=== PATIENT | male | born 1980 | race Caucasian/White ===

== ENCOUNTER 2018-12-24 16:27 | Emergency (ER) | payer OTHER ==
[2018-12-24 16:57] VITALS: BP 132/80; PULSE 92; RESP 16; TEMP 98.6
[2018-12-24 18:06] LABS: Amorphous Sediment,Urine Rare /hpf; Appearance,Urine Clear (Clear); Bilirubin,Urine Negative (Negative); Blood,Urine Moderate (Negative); Color,Urine Yellow; Glucose,Urine (UA) Negative (Negative); Hyaline Casts,Urine 1 /lpf (0-2); Ketones,Urine Negative (Negative); Leukocyte Esterase,Urine Negative (Negative); Mucus,Urine Few /hpf; Nitrite,Urine Negative (Negative); PH, Urine 5.5 (5.0-8.0); Protein,Urine Negative (Negative); RBC,Urine 38 /hpf (0-5); Specific Gravity,Urine 1.008 (1.001-1.035); Squamous Epithelial Cell,Urine 1 /hpf (0-4); Urobilinogen,Urine <2.0 mg/dL (<2.0); WBC,Urine 5 /hpf (0-5)
[2018-12-24 18:25] LABS: Basophils # (A) 0.1 k/uL (0-0.2); Basophils % (A) 1 %; Eosinophils # (A) 0.3 k/uL (0-0.7); Eosinophils % (A) 4 %; HCT 35.5 % (39.0-53.0); HGB 11.5 gm/dL (13.0-17.5); Lymphocytes # (A) 2.2 k/uL (1.0-4.8); Lymphocytes % (A) 30 %; MCH 28.9 pg (25.0-35.0); MCHC 32.3 g/dL (31.0-37.0); MCV 89.5 fL (80.0-100.0); Monocytes # (A) 0.6 k/uL (0-1.0); Monocytes % (A) 8 %; Neutrophils % (A) 55 %; Platelet Count 345 k/uL (150-450); RBC 3.97 m/uL (4.30-5.90); RDW 14.2 % (11.5-15.5); WBC 7.3 k/uL (3.8-10.6)
[2018-12-24 18:35] LABS: ALT 27 U/L (21-72); AST 33 U/L (17-59); Albumin 3.5 g/dL (3.5-5.0); Alkaline Phosphatase 58 U/L (38-126); Amylase 61 U/L (30-110); Anion Gap 5 mmol/L; Blood Urea Nitrogen 9 mg/dL (9-20); Calcium 9.2 mg/dL (8.4-10.2); Carbon Dioxide 23 mmol/L (22-30); Chloride 112 mmol/L (98-107); Glucose 98 mg/dL (74-99); Lipase 123 U/L (23-300); Sodium 140 mmol/L (137-145); Total Bilirubin 0.5 mg/dL (0.2-1.3); Total Protein 6.2 g/dL (6.3-8.2)
[2018-12-24 18:48] LABS: Potassium 5.1 mmol/L (3.5-5.1)
--- NOTE | 2018-12-24 19:06 | ED ---
General Adult HPI - General Chief complaint: Abdominal Pain Stated complaint: POST OP PAIN Time Seen by Provider: 12/24/18 17:15 Source: patient, RN notes reviewed Limitations: no limitations - History of Present Illness Initial comments: 38-year-old male presents to the emergency department for suprapubic discomfort. Patient had a urethral repair 2-1/2 weeks ago. Patient states he had to have this done as he had scar tissue growing from an injury of catheter placement when he was a child. He states he has not had any complications with this. Catheter in place at this time. However today patient started having sharp suprapubic pain radiating to bilateral groins. He has not experienced this before. He denies any upper abdominal pain. He denies any fevers or chills. - Related Data Home Medications Medication Instructions Recorded Confirmed Acetaminophen Tab [Tylenol Tab] 1,000 mg PO TID PRN 12/24/18 12/24/18 Nitrofurantoin Monohyd/M-Cryst 100 mg PO Q12HR 12/24/18 12/24/18 [Macrobid] Allergies Allergy/AdvReac Type Severity Reaction Status Date / Time No Known Allergies Allergy Verified 12/24/18 17:15 Review of Systems ROS Statement: Those systems with pertinent positive or pertinent negative responses have been documented in the HPI. ROS Other: All systems not noted in ROS Statement are negative. Past Medical History Past Medical History: No Reported History History of Any Multi-Drug Resistant Organisms: None Reported Additional Past Surgical History / Comment(s): Urethra repair Past Psychological History: No Psychological Hx Reported Smoking Status: Current every day smoker Past Alcohol Use History: Occasional Past Drug Use History: None Reported General Exam Limitations: no limitations General appearance: alert, in no apparent distress Head exam: Present: atraumatic, normocephalic, normal inspection Eye exam: Present: normal appearance, PERRL, EOMI. Absent: scleral icterus, conjunctival injection, periorbital swelling ENT exam: Present: normal exam, mucous membranes moist Neck exam: Present: normal inspection, full ROM. Absent: tenderness, meningismus, lymphadenopathy Respiratory exam: Present: normal lung sounds bilaterally. Absent: respiratory distress, wheezes, rales, rhonchi, stridor Cardiovascular Exam: Present: regular rate, normal rhythm, normal heart sounds. Absent: systolic murmur, diastolic murmur, rubs, gallop, clicks GI/Abdominal exam: Present: soft, tenderness (Suprapubic tenderness without guarding. No significant right or left lower quadrant tenderness. No upper abdominal tenderness whatsoever.), normal bowel sounds. Absent: distended, guarding, rebound, rigid exam: Present: other (pabon catheter in place) Neurological exam: Present: alert, oriented X3, CN II-XII intact Psychiatric exam: Present: normal affect, normal mood Course Vital Signs 12/24/18 16:55 Temperature 98.6 F Pulse Rate 92 Respiratory 16 Rate Blood Pressure 132/80 O2 Sat by Pulse 97 Oximetry Medical Decision Making - Medical Decision Making 30-year-old male presents for lower abdominal pain over the suprapubic area. No guarding on exam. Pabon catheter in place post surgery 2.5 weeks ago. 38 ml in bladder with bladder scan. CBC CMP unremarkable. Urine does not show any evidence of infection although there is blood noted which is likely secondary to patient's surgery. CT of the abdomen and pelvis was ordered. When patient was in CAT scan his IV blew. IV placement was attempted 3 more times without success. Patient then refused IV. I did discuss with patient that not using contrast that limits the exam the patient still refuses and would rather do the CAT scan without contrast. CT did show that the urethral course appears normal. Urinary bladder contains Pabon catheter, no suspicious abnormality identified adjacent to this. It discuss diverticular changes without diverticulitis. I did discuss nonspecific nodules at the lung bases as well and patient will follow up with primary care for this. Patient will return here if he has any worsening symptoms. She will follow up with his surgeon tomorrow. He does have an appointment in 2 days. - Lab Data Result diagrams: 12/24/18 18:09 12/24/18 18:09 Lab Results 12/24/18 12/24/18 12/24/18 Range/Units 17:48 18:09 18:09 WBC 7.3 (3.8-10.6) k/uL RBC 3.97 L (4.30-5.90) m/uL Hgb 11.5 L (13.0-17.5) gm/dL Hct 35.5 L (39.0-53.0) % MCV 89.5 (80.0-100.0) fL MCH 28.9 (25.0-35.0) pg MCHC 32.3 (31.0-37.0) g/dL RDW 14.2 (11.5-15.5) % Plt Count 345 (150-450) k/uL Neutrophils % 55 % Lymphocytes % 30 % Monocytes % 8 % Eosinophils % 4 % Basophils % 1 % Neutrophils # 4.0 (1.3-7.7) k/uL Lymphocytes # 2.2 (1.0-4.8) k/uL Monocytes # 0.6 (0-1.0) k/uL Eosinophils # 0.3 (0-0.7) k/uL Basophils # 0.1 (0-0.2) k/uL Sodium 140 (137-145) mmol/L Potassium 5.1 (3.5-5.1) mmol/L Chloride 112 H (98-107) mmol/L Carbon Dioxide 23 (22-30) mmol/L Anion Gap 5 mmol/L BUN 9 (9-20) mg/dL Creatinine 0.66 (0.66-1.25) mg/dL Est GFR (CKD-EPI)AfAm >90 (>60 ml/min/1.73 sqM) Est GFR (CKD-EPI)NonAf >90 (>60 ml/min/1.73 sqM) Glucose 98 (74-99) mg/dL Calcium 9.2 (8.4-10.2) mg/dL Total Bilirubin 0.5 (0.2-1.3) mg/dL AST 33 (17-59) U/L ALT 27 (21-72) U/L Alkaline Phosphatase 58 (38-126) U/L Total Protein 6.2 L (6.3-8.2) g/dL Albumin 3.5 (3.5-5.0) g/dL Amylase 61 (30-110) U/L Lipase 123 (23-300) U/L Urine Color Yellow Urine Appearance Clear (Clear) Urine pH 5.5 (5.0-8.0) Ur Specific [place] 1.008 (1.001-1.035) Urine Protein Negative (Negative) Urine Glucose (UA) Negative (Negative) Urine Ketones Negative (Negative) Urine Blood Moderate H (Negative) Urine Nitrite Negative (Negative) Urine Bilirubin Negative (Negative) Urine Urobilinogen <2.0 (<2.0) mg/dL Ur Leukocyte Esterase Negative (Negative) Urine RBC 38 H (0-5) /hpf Urine WBC 5 (0-5) /hpf Ur Squamous Epith Cells 1 (0-4) /hpf Amorphous Sediment Rare H (None) /hpf Hyaline Casts 1 (0-2) /lpf Urine Mucus Few H (None) /hpf Disposition Clinical Impression: Pelvic pain in male Disposition: HOME SELF-CARE Condition: Good Instructions (If sedation given, give patient instructions): Pabon Catheter Placement and Care (ED), Abdominal Pain (ED) Additional Instructions: Please follow-up with your surgeon tomorrow. If symptoms worsen please return to the emergency department. Is patient prescribed a controlled substance at d/c from ED?: No Referrals: Jose Antonio Wallace MD [Primary Care Provider] - 1-2 days Time of Disposition: 20:57
--- NOTE | 2018-12-24 20:36 | CT ---
EXAMINATION TYPE: CT abdomen pelvis wo con DATE OF EXAM: 12/24/2018 COMPARISON: None INDICATION: Post op bladder pain. History of urethra repair. DLP: 757.1 mGycm, Automated exposure control for dose reduction was used. CONTRAST: 0 mL of . Study performed without Oral Contrast TECHNIQUE: Axial images were obtained from above the diaphragm to the pubic rami in the axial plane a t 5 mm thick sections. Reconstructed images are reviewed on the computer in the coronal plane. FINDINGS: Limited CT sections are obtained the lung bases. There are several nodules at the left lung base inc luding peripheral 0.9 cm nodule, series 204 image 2 couple of nodules measuring 0.6 and 0.7 cm just a milady the left diaphragm series 204 image 7. Additional smaller nodules are evident at the left base. These are nonspecific. Follow-up is recommended.. CT ABDOMEN: Liver: Normal Spleen: Normal Pancreas: Normal Adrenal glands: The adrenal glands are normal. Gallbladder: Normal Kidneys: No masses are evident. No hydronephrosis is present. No cysts are present. No renal stone s are identified. Aorta: Normal Inferior vena cava: Normal. CT PELVIS: Loops of bowel within the abdomen and pelvis are normal. Study is without oral contrast limiting bowel evaluation. A few diverticular changes are within the sigmoid colon. Appendix: Normal as visualized. Urinary bladder: Urinary bladder contains Hodgson catheter. The urinary bladder cannot be further evalu ated. Urethral course appears normal. Genitourinary structures: Prostate appears unremarkable. Osseous structures: No suspicious lytic or sclerotic lesions. IMPRESSIONS: 1. No suspicious abnormality identified adjacent to the Hodgson catheter within urinary bladder. Urina ry bladder cannot be evaluated as it is decompressed during this exam. 2. A few diverticular changes without acute diverticulitis within the sigmoid colon. 3. Several nodules at the left lung base of uncertain etiology. Follow-up is recommended.
== END 2018-12-24 21:01 | disposition home or self-care (01) ==
LOC: EC 16:27
DX: R10.2 Pelvic and perineal pain (principal); R91.8 Other nonspecific abnormal finding of lung field; F17.200 Nicotine dependence, unspecified, uncomplicated; Z98.890 Other specified postprocedural states
CPT/HCPCS: 36415; 74176; 80053; 81001; 82150; 83690; 85025; 99284

== ENCOUNTER 2019-04-08 13:02 | Emergency (ER) | payer OTHER ==
[2019-04-08 13:11] VITALS: RESP 18
[2019-04-08] MEDS ORDERED: LIDOCAINE 1% INJ 10MG/ML (20 ML MDV) SQ ONE (13:28)
--- NOTE | 2019-04-08 13:33 | ED ---
Wound/Laceration HPI - General Chief Complaint: Wound/Laceration Stated Complaint: Hand lac Time Seen by Provider: 04/08/19 13:12 Source: patient, RN notes reviewed Mode of arrival: ambulatory Limitations: no limitations - History of Present Illness Initial Comments: 38-year-old male presents emergency Department chief complaint laceration to his right hand. Patient states that he was chopping kindling and talking on the phone when he states he slipped causing a laceration to his right hand. Patient states that he does not radiate has tenderness to he has an ALLERGY to tetanus. Patient states his full range of motion of all digits denies any paresthesias. Patient offers no other complaints. - Related Data Home Medications Medication Instructions Recorded Confirmed Acetaminophen Tab [Tylenol Tab] 1,000 mg PO TID PRN 12/24/18 12/24/18 Nitrofurantoin Monohyd/M-Cryst 100 mg PO Q12HR 12/24/18 12/24/18 [Macrobid] Previous Rx's Medication Instructions Recorded Cephalexin [Keflex] 500 mg PO Q6HR #28 cap 04/08/19 Allergies Allergy/AdvReac Type Severity Reaction Status Date / Time Tetanus Vaccines and Toxoid Allergy Swelling Verified 04/08/19 13:12 Review of Systems ROS Statement: Those systems with pertinent positive or pertinent negative responses have been documented in the HPI. ROS Other: All systems not noted in ROS Statement are negative. Past Medical History Past Medical History: No Reported History History of Any Multi-Drug Resistant Organisms: None Reported Additional Past Surgical History / Comment(s): Urethra repair Past Psychological History: No Psychological Hx Reported Smoking Status: Current every day smoker Past Alcohol Use History: Occasional Past Drug Use History: Marijuana General Exam Limitations: no limitations General appearance: alert, in no apparent distress Respiratory exam: Present: normal lung sounds bilaterally. Absent: respiratory distress, wheezes, rales, rhonchi, stridor Cardiovascular Exam: Present: regular rate, normal rhythm, normal heart sounds. Absent: systolic murmur, diastolic murmur, rubs, gallop, clicks Extremities exam: Present: other (Right hand there is a 8 cm laceration to the dorsal aspect of the hand circles into the palmar aspect full range of motion all digits no active bleeding neurovascular intact patient's digits for range of motion Refill less than 2 seconds of all digits there is no deep laceration this was more superficial) Course Vital Signs 04/08/19 13:07 Temperature 98.4 F Pulse Rate 84 Respiratory 18 Rate Blood Pressure 143/84 O2 Sat by Pulse 98 Oximetry Procedures - Laceration Laceration #1 Indication: laceration Site: hand (Left) Size (cm): 8 Description: flap, irregular Depth: simple, single layer Anesthetic Used: lidocaine 1%, without epi Anesthesia Technique: local infiltration Amount (mls): 10 Pre-repair: wound explored, irrigated extensively, deep structures intact Type of Sutures: nylon Size of Sutures: 4-0 Number of Sutures: 22 Technique: simple, interrupted Patient Tolerated Procedure: well, no complications Medical Decision Making - Medical Decision Making 38-year-old female presents emergency Department for for right hand laceration. This was a very large 8cm laceration which is more superficial there is no deep structure involvement. There is no foreign bodies. Patient has full range of motion. He was given strict return parameters and strict parameters and follow- up with hand surgery. Return parameters were discussed. Disposition Clinical Impression: Laceration of right hand Disposition: HOME SELF-CARE Condition: Stable Instructions (If sedation given, give patient instructions): Care For Your Stitches (ED), Laceration (ED) Additional Instructions: Please return to the Emergency Department if symptoms worsen or any other concerns. Prescriptions: Cephalexin [Keflex] 500 mg PO Q6HR #28 cap Is patient prescribed a controlled substance at d/c from ED?: No Referrals: Jose Antonio Wallace MD [Primary Care Provider] - 1-2 days Drew Ruiz DO [Medical Doctor] - 1-2 days Time of Disposition: 14:27
[2019-04-08] MEDS ORDERED: CEPHALEXIN 500MG STARTER PACK 4 CAP BTL PO STA (14:24)
[2019-04-08] MEDS ORDERED: IBUPROFEN 600 MG STARTER PACK 4 TAB BTL PO STA (14:28)
[2019-04-08 14:48] VITALS: BP 128/70; PULSE 82; TEMP 98.5
== END 2019-04-08 14:46 | disposition home or self-care (01) ==
LOC: EC 13:02
DX: S61.411A Laceration without foreign body of right hand, initial encounter (principal); F17.200 Nicotine dependence, unspecified, uncomplicated; Z88.7 Allergy status to serum and vaccine; W26.8XXA Contact with other sharp object(s), not elsewhere classified, initial encounter
CPT/HCPCS: 99282; 12004; J2001

== ENCOUNTER 2019-06-04 17:48 | Emergency (ER) | payer OTHER ==
[2019-06-04 19:01] VITALS: RESP 18; TEMP 97.6
[2019-06-04] MEDS ORDERED: SODIUM CHLORIDE 0.9% 1,000 ML IV STA (19:42)
[2019-06-04] MEDS ORDERED: KETOROLAC 30 MG/ML 1 ML VIAL IVP STA (19:42)
--- NOTE | 2019-06-04 20:00 | ED ---
Abdominal Pain HPI - General Chief Complaint: Abdominal Pain Stated Complaint: abdominal pain Time Seen by Provider: 06/04/19 19:30 Source: patient Limitations: no limitations - History of Present Illness Initial Comments: 38-year-old male patient presents to the emergency department today for evaluation of lower abdominal pain. Patient states this started earlier today while at work and has been worsening throughout the day. Patient denies any vomiting, nausea, or diarrhea with this. Denies any constipation. States he has been chilled but has not had any fevers. Patient states he does have history of diverticulitis and is concerned this may be back. Denies any history of abdominal surgery. Patient denies any recent rash, shortness breath, chest pain, back pain, numbness, tingling, dizziness, weakness, hematuria, dysuria, urinary urgency, urinary frequency, headache, visual changes, or any other complaints. - Related Data Home Medications Medication Instructions Recorded Confirmed No Known Home Medications 06/04/19 06/04/19 Allergies Allergy/AdvReac Type Severity Reaction Status Date / Time Tetanus Vaccines and Toxoid Allergy Swelling Verified 06/04/19 19:41 Review of Systems ROS Statement: Those systems with pertinent positive or pertinent negative responses have been documented in the HPI. ROS Other: All systems not noted in ROS Statement are negative. Past Medical History Past Medical History: No Reported History Additional Past Medical History / Comment(s): diverticulitis History of Any Multi-Drug Resistant Organisms: None Reported Additional Past Surgical History / Comment(s): Urethra repair Past Psychological History: No Psychological Hx Reported Smoking Status: Current every day smoker Past Alcohol Use History: Occasional Past Drug Use History: Marijuana General Exam Limitations: no limitations General appearance: alert, in no apparent distress, other (Physical well- developed, well-nourished adult male patient in no acute distress. Vital signs upon presentation are temperature 97.6F, pulse 76, respirations 18, blood pressure 153/82, pulse ox 99% on room air.) Eye exam: Present: normal appearance, PERRL, EOMI. Absent: scleral icterus, conjunctival injection, periorbital swelling ENT exam: Present: normal exam, normal oropharynx, mucous membranes moist Respiratory exam: Present: wheezes (Mild diffuse expiratory wheezing in the posterior lung alicea). Absent: normal lung sounds bilaterally, respiratory distress, rales, rhonchi, stridor Cardiovascular Exam: Present: regular rate, normal rhythm, normal heart sounds. Absent: systolic murmur, diastolic murmur, rubs, gallop, clicks GI/Abdominal exam: Present: soft, tenderness (Lower abdominal tenderness), normal bowel sounds. Absent: distended, guarding, rebound, rigid Neurological exam: Present: alert, oriented X3, CN II-XII intact Psychiatric exam: Present: normal affect, normal mood Skin exam: Present: warm, dry, intact, normal color. Absent: rash Course Vital Signs 06/04/19 06/04/19 18:57 22:14 Temperature 97.6 F Pulse Rate 76 87 Respiratory 18 18 Rate Blood Pressure 153/82 137/87 O2 Sat by Pulse 99 99 Oximetry Medical Decision Making - Medical Decision Making 38-year-old male patient presents the emergency department today for evaluation of lower abdominal pain. Patient states this started this morning. Had no associated symptoms. Vital signs are stable. Labs reviewed and are unremarkable. Patient did have history of diverticulitis we did perform abdomen and pelvis CT which showed no acute findings. Did discuss findings and was also the patient. He'll be discharged home to follow-up with his primary care physician for recheck in 1-2 days. Return parameters discussed in detail. He verbalizes understanding and agrees with this plan. - Lab Data Result diagrams: 06/04/19 19:53 06/04/19 19:53 Lab Results 06/04/19 06/04/19 06/04/19 Range/Units 19:53 19:53 19:59 WBC 7.7 (3.8-10.6) k/uL RBC 4.82 (4.30-5.90) m/uL Hgb 13.4 (13.0-17.5) gm/dL Hct 41.9 (39.0-53.0) % MCV 86.9 (80.0-100.0) fL MCH 27.7 (25.0-35.0) pg MCHC 31.9 (31.0-37.0) g/dL RDW 13.4 (11.5-15.5) % Plt Count 240 (150-450) k/uL Neutrophils % 52 % Lymphocytes % 35 % Monocytes % 7 % Eosinophils % 3 % Basophils % 0 % Neutrophils # 4.0 (1.3-7.7) k/uL Lymphocytes # 2.7 (1.0-4.8) k/uL Monocytes # 0.6 (0-1.0) k/uL Eosinophils # 0.2 (0-0.7) k/uL Basophils # 0.0 (0-0.2) k/uL Sodium 140 (137-145) mmol/L Potassium 4.4 (3.5-5.1) mmol/L Chloride 109 H (98-107) mmol/L Carbon Dioxide 24 (22-30) mmol/L Anion Gap 7 mmol/L BUN 13 (9-20) mg/dL Creatinine 0.53 L (0.66-1.25) mg/dL Est GFR (CKD-EPI)AfAm >90 (>60 ml/min/1.73 sqM) Est GFR (CKD-EPI)NonAf >90 (>60 ml/min/1.73 sqM) Glucose 93 (74-99) mg/dL Plasma Lactic Acid Gaudencio 0.9 (0.7-2.0) mmol/L Calcium 9.9 (8.4-10.2) mg/dL Total Bilirubin 0.8 (0.2-1.3) mg/dL AST 52 (17-59) U/L ALT 70 (21-72) U/L Alkaline Phosphatase 109 (38-126) U/L Total Protein 6.4 (6.3-8.2) g/dL Albumin 3.9 (3.5-5.0) g/dL Amylase 88 (30-110) U/L Lipase 281 (23-300) U/L - Radiology Data Radiology results: report reviewed, image reviewed CT abdomen and pelvis with contrast was obtained. Report reviewed in its entirety. Impression by Dr. Ferrer shows no bowel ejection. No significant new or acute findings seen 2, patient's clinical symptoms. Disposition Clinical Impression: Abdominal pain Disposition: HOME SELF-CARE Condition: Good Instructions (If sedation given, give patient instructions): Abdominal Pain (ED) Additional Instructions: Increase fluids. Take Tylenol Motrin for pain control. Follow-up through primary care physician for recheck in 1-2 days. Return to the emergency department immediately for any new, worsening, or concerning symptoms. Is patient prescribed a controlled substance at d/c from ED?: No Referrals: Jose Antonio Wallace MD [Primary Care Provider] - 1-2 days Time of Disposition: 22:02
[2019-06-04 20:06] LABS: Basophils % (A) 0 %; Eosinophils # (A) 0.2 k/uL (0-0.7); Eosinophils % (A) 3 %; HCT 41.9 % (39.0-53.0); HGB 13.4 gm/dL (13.0-17.5); Lymphocytes # (A) 2.7 k/uL (1.0-4.8); Lymphocytes % (A) 35 %; MCH 27.7 pg (25.0-35.0); MCHC 31.9 g/dL (31.0-37.0); MCV 86.9 fL (80.0-100.0); Mean Platelet Volume 7.3; Monocytes # (A) 0.6 k/uL (0-1.0); Monocytes % (A) 7 %; Neutrophils % (A) 52 %; Platelet Count 240 k/uL (150-450); RBC 4.82 m/uL (4.30-5.90); RDW 13.4 % (11.5-15.5); WBC 7.7 k/uL (3.8-10.6)
[2019-06-04 20:22] LABS: ALT 70 U/L (21-72); AST 52 U/L (17-59); African American GFR (CKD) >90 (>60 ml/min/1.73 sqM); Albumin 3.9 g/dL (3.5-5.0); Alkaline Phosphatase 109 U/L (38-126); Amylase 88 U/L (30-110); Anion Gap 7 mmol/L; Blood Urea Nitrogen 13 mg/dL (9-20); Calcium 9.9 mg/dL (8.4-10.2); Carbon Dioxide 24 mmol/L (22-30); Chloride 109 mmol/L (98-107); Glucose 93 mg/dL (74-99); Lipase 281 U/L (23-300); Potassium 4.4 mmol/L (3.5-5.1); Sodium 140 mmol/L (137-145); Total Bilirubin 0.8 mg/dL (0.2-1.3); Total Protein 6.4 g/dL (6.3-8.2)
--- NOTE | 2019-06-04 21:05 | CT ---
EXAMINATION TYPE: CT abdomen pelvis w con DATE OF EXAM: 06/04/2019 COMPARISON: CT abdomen and pelvis December 24, 2018 HISTORY: Abdominal pain not further specified. CT DLP: 851.7 mGycm, Automated Exposure Control for Dose Reduction was Utilized. CONTRAST: CT scan of the abdomen and pelvis is performed without oral but with IV Contrast, patient injected wi th 100 mL of Isovue 300. FINDINGS: LUNG BASES: Lateral left basilar linear scarring is redemonstrated. Stable 8 mm subpleural nodularity axial image 9% postinflammatory given interval stability adjacent to linear scarring LIVER/GB: No significant abnormality is appreciated. PANCREAS: No significant abnormality is seen. SPLEEN: No significant abnormality is seen. ADRENALS: No significant abnormality is seen. KIDNEYS: No significant abnormality is seen. BOWEL: Evaluation bowel is suboptimal secondary to lack of enteric contrast. There is no suspicious s mall or large bowel dilatation. PROSTATE/SEMINAL VESICLES: No gross abnormality seen. LYMPH NODES: No greater than 1cm abdominal or pelvic lymph nodes are appreciated. OSSEOUS STRUCTURES: Mild to moderate facet arthropathy lower lumbar spine is redemonstrated. OTHER: No significant additional abnormality is seen. IMPRESSION: No bowel obstruction. No significant new or acute finding is seen to account for patient 's clinical symptoms.
[2019-06-04 22:16] VITALS: BP 137/87; PULSE 87
== END 2019-06-04 22:15 | disposition home or self-care (01) ==
LOC: EC 17:48
DX: R10.30 Lower abdominal pain, unspecified (principal); R06.2 Wheezing; F17.200 Nicotine dependence, unspecified, uncomplicated; Z88.7 Allergy status to serum and vaccine; Z87.19 Personal history of other diseases of the digestive system
CPT/HCPCS: 36415; 80053; 82150; 83605; 83690; 85025; 74177; 99284; 96374; 96361; J1885; Q9967

== ENCOUNTER 2021-07-14 15:59 | Emergency (ER) | payer OTHER ==
[2021-07-14 16:36] VITALS: BP 117/69; PULSE 68; TEMP 98.1
[2021-07-14] MEDS ORDERED: SODIUM CHLORIDE 0.9% 1,000 ML IV STA (16:47)
--- NOTE | 2021-07-14 16:54 | ED ---
Abdominal Pain HPI - General Source: patient, family, RN notes reviewed Mode of arrival: ambulatory Limitations: no limitations - History of Present Illness MD Complaint: abdominal pain (Right lower quadrant) -: week(s) (7) Location: RLQ Radiation: other (Right groin) Severity scale (1-10): 5 Quality: sharp Consistency: intermittent Improves With: rest Worsens With: nothing Associated Symptoms: denies other symptoms <Roger Marvin - Last Filed: 07/14/21 22:50> <Janis Lisa - Last Filed: 07/18/21 14:29> - General Chief Complaint: Abdominal Pain Stated Complaint: abd pain Time Seen by Provider: 07/14/21 16:38 - History of Present Illness Initial Comments: 40-year-old well-appearing white male, alert and oriented 4, presents to the emergency room with complaints of right lower quadrant pain intermittently for one week. He denies any injuries or any heavy lifting. He states that sometimes the pain goes down into his right testicle. Denies any dysuria or penile discharge. He denies flank pain or history of kidney stones. Denies any nausea vomiting or diarrhea No abdominal surgeries. He is a smoker. (Roger Marvin) - Related Data Home Medications Medication Instructions Recorded Confirmed No Known Home Medications 06/04/19 06/04/19 Allergies Allergy/AdvReac Type Severity Reaction Status Date / Time Tetanus Vaccines and Toxoid Allergy Swelling Verified 07/14/21 16:36 Review of Systems ROS Other: All systems not noted in ROS Statement are negative. <Roger Marvin - Last Filed: 07/14/21 22:50> ROS Other: All systems not noted in ROS Statement are negative. <Janis Lisa - Last Filed: 07/18/21 14:29> ROS Statement: Those systems with pertinent positive or pertinent negative responses have been documented in the HPI. Past Medical History Past Medical History: No Reported History Additional Past Medical History / Comment(s): diverticulitis History of Any Multi-Drug Resistant Organisms: None Reported Additional Past Surgical History / Comment(s): Urethra repair Past Psychological History: No Psychological Hx Reported Past Alcohol Use History: Occasional Past Drug Use History: Marijuana <Roger Marvin - Last Filed: 07/14/21 22:50> General Exam Limitations: no limitations General appearance: alert, in no apparent distress Head exam: Present: atraumatic, normocephalic, normal inspection Eye exam: Present: normal appearance, PERRL, EOMI. Absent: scleral icterus, conjunctival injection, periorbital swelling ENT exam: Present: normal exam, normal oropharynx, mucous membranes moist Neck exam: Present: normal inspection, full ROM. Absent: tenderness, meningismus, lymphadenopathy Respiratory exam: Present: normal lung sounds bilaterally. Absent: respiratory distress, wheezes, rales, rhonchi, stridor, chest wall tenderness, accessory muscle use Cardiovascular Exam: Present: regular rate, normal rhythm, normal heart sounds. Absent: systolic murmur, diastolic murmur, rubs, gallop, clicks GI/Abdominal exam: Present: soft, normal bowel sounds. Absent: distended, tenderness, guarding, rebound, rigid Extremities exam: Present: normal inspection, full ROM, normal capillary refill. Absent: tenderness, pedal edema, joint swelling, calf tenderness Back exam: Present: normal inspection, full ROM. Absent: tenderness, CVA tenderness (R), CVA tenderness (L), muscle spasm, paraspinal tenderness, v ertebral tenderness, rash noted Neurological exam: Present: alert, oriented X3, CN II-XII intact Psychiatric exam: Present: normal affect, normal mood Skin exam: Present: warm, dry, intact, normal color. Absent: rash, cyanosis, diaphoretic, petechiae, pallor <Roger Marvin - Last Filed: 07/14/21 22:50> Course Vital Signs 07/14/21 07/14/21 16:32 17:36 Temperature 98.1 F Pulse Rate 68 Respiratory 16 18 Rate Blood Pressure 117/69 O2 Sat by Pulse 97 Oximetry Medical Decision Making - Lab Data Result diagrams: 07/14/21 17:04 07/14/21 17:04 <Roger Marvin - Last Filed: 07/14/21 22:50> - Lab Data Result diagrams: 07/14/21 17:04 07/14/21 17:04 <Janis Lisa - Last Filed: 07/18/21 14:29> - Medical Decision Making KUB x-ray shows a nonacute abdomen with no signs of obstruction or pneumoperitoneum. Ultrasound of the abdomen shows a normal appendix measuring 4.2 mm. There is a lymph node measuring 1.2 x 1.8 x 0.5 cm. There is no leukocytosis, WBC count 8.1. Patient is afebrile. Patient was instructed to follow-up with his primary care doctor is week. He was also advised that there is an enlarged lymph node in the right groin to have his primary care doctor evaluate. Case discussed with Dr. Lisa ([facility]) I was available for consultation in the emergency department. The history and physical exam were done by the midlevel provider. I was consulted for this patients care. I reviewed the case with the midlevel provider and based on their presentation of the patient, I agree with the assessment, medical decision making and plan of care as documented. Chart was dictated using [employer] dictation software. Attempts were made to correct any dictation errors however some typographical errors may persist. Patient was seen during a national state of emergency due to the Covid-19 pa ndemic. (Janis Lisa) - Lab Data Lab Results 07/14/21 07/14/21 07/14/21 Range/Units 17:04 17:04 18:57 WBC 8.1 (3.8-10.6) k/uL RBC 4.79 (4.30-5.90) m/uL Hgb 14.6 (13.0-17.5) gm/dL Hct 43.9 (39.0-53.0) % MCV 91.7 (80.0-100.0) fL MCH 30.5 (25.0-35.0) pg MCHC 33.2 (31.0-37.0) g/dL RDW 13.5 (11.5-15.5) % Plt Count 183 (150-450) k/uL MPV 8.7 Neutrophils % 45 % Lymphocytes % 41 % Monocytes % 8 % Eosinophils % 4 % Basophils % 1 % Neutrophils # 3.6 (1.3-7.7) k/uL Lymphocytes # 3.4 (1.0-4.8) k/uL Monocytes # 0.6 (0-1.0) k/uL Eosinophils # 0.3 (0-0.7) k/uL Basophils # 0.1 (0-0.2) k/uL Sodium 137 (137-145) mmol/L Potassium 4.2 (3.5-5.1) mmol/L Chloride 109 H (98-107) mmol/L Carbon Dioxide 20 L (22-30) mmol/L Anion Gap 8 mmol/L BUN 11 (9-20) mg/dL Creatinine 0.61 L (0.66-1.25) mg/dL Est GFR (CKD-EPI)AfAm >90 (>60 ml/min/1.73 sqM) Est GFR (CKD-EPI)NonAf >90 (>60 ml/min/1.73 sqM) Glucose 113 H (74-99) mg/dL Calcium 8.9 (8.4-10.2) mg/dL Total Bilirubin 0.4 (0.2-1.3) mg/dL AST 33 (17-59) U/L ALT 29 (4-49) U/L Alkaline Phosphatase 102 (38-126) U/L Total Protein 6.0 L (6.3-8.2) g/dL Albumin 3.6 (3.5-5.0) g/dL Amylase 50 (30-110) U/L Lipase 65 (23-300) U/L Urine Color Yellow Urine Appearance Clear (Clear) Urine pH 6.5 (5.0-8.0) Ur Specific [place] 1.023 (1.001-1.035) Urine Protein Negative (Negative) Urine Glucose (UA) Negative (Negative) Urine Ketones Negative (Negative) Urine Blood Negative (Negative) Urine Nitrite Negative (Negative) Urine Bilirubin Negative (Negative) Urine Urobilinogen 2.0 (<2.0) mg/dL Ur Leukocyte Esterase Negative (Negative) Disposition Is patient prescribed a controlled substance at d/c from ED?: No Time of Disposition: 20:12 <Roger Marvin - Last Filed: 07/14/21 22:50> <Janis Lisa - Last Filed: 07/18/21 14:29> Clinical Impression: Abdominal pain Disposition: HOME SELF-CARE Condition: Good Instructions (If sedation given, give patient instructions): Abdominal Pain (ED) Additional Instructions: Follow-up with your primary care doctor in 1 week. Return to the emergency room with any new or worsening symptoms including increased pain or fever. Referrals: Jose Antonio Wallace MD [Primary Care Provider] - 1-2 days
[2021-07-14 17:07] LABS: Basophils # (A) 0.1 k/uL (0-0.2); Basophils % (A) 1 %; Eosinophils # (A) 0.3 k/uL (0-0.7); Eosinophils % (A) 4 %; HCT 43.9 % (39.0-53.0); HGB 14.6 gm/dL (13.0-17.5); Lymphocytes # (A) 3.4 k/uL (1.0-4.8); Lymphocytes % (A) 41 %; MCH 30.5 pg (25.0-35.0); MCHC 33.2 g/dL (31.0-37.0); MCV 91.7 fL (80.0-100.0); Mean Platelet Volume 8.7; Monocytes # (A) 0.6 k/uL (0-1.0); Monocytes % (A) 8 %; Neutrophils # (A) 3.6 k/uL (1.3-7.7); Neutrophils % (A) 45 %; Platelet Count 183 k/uL (150-450); RBC 4.79 m/uL (4.30-5.90); RDW 13.5 % (11.5-15.5); WBC 8.1 k/uL (3.8-10.6)
[2021-07-14 17:17] LABS: ALT 29 U/L (4-49); AST 33 U/L (17-59); African American GFR (CKD) >90 (>60 ml/min/1.73 sqM); Albumin 3.6 g/dL (3.5-5.0); Alkaline Phosphatase 102 U/L (38-126); Amylase 50 U/L (30-110); Anion Gap 8 mmol/L; Blood Urea Nitrogen 11 mg/dL (9-20); Calcium 8.9 mg/dL (8.4-10.2); Carbon Dioxide 20 mmol/L (22-30); Chloride 109 mmol/L (98-107); Glucose 113 mg/dL (74-99); Lipase 65 U/L (23-300); Non-African American GFR(CKD) >90 (>60 ml/min/1.73 sqM); Potassium 4.2 mmol/L (3.5-5.1); Sodium 137 mmol/L (137-145); Total Bilirubin 0.4 mg/dL (0.2-1.3)
[2021-07-14 17:42] VITALS: RESP 18
--- NOTE | 2021-07-14 17:50 | XR ---
EXAMINATION TYPE: XR KUB DATE OF EXAM: 07/14/2021 COMPARISON: NONE HISTORY: Abdominal pain TECHNIQUE: 2 views upright FINDINGS: There is no sign of intestinal obstruction or pneumoperitoneum. Fecal pattern is normal. Th ere is no evidence of a mass. IMPRESSION: Nonacute abdomen.
--- NOTE | 2021-07-14 18:21 | US ---
EXAMINATION TYPE: US abdomen APPY DATE OF EXAM: 07/14/2021 COMPARISON: CT CLINICAL HISTORY: rlq pain. RLQ pain x couple weeks. APPENDIX AP Diameter (normal < 6mm): Tubular structure seen in the RLQ that could resemble the appendix measures 4.2 mm Measured outer wall to outer wall. Is the appendix compressible: Tubular structure measures 4.2 mm AP upon compression. Is an appendicolith present: None seen. Is there inflammatory changes or free fluid present: Hypoechoic area with hyperechoic center and vas cular hilum seen within the RLQ: 1.2 x 1.8 x 0.5 cm. IMPRESSION: Appendix appears to be visualized and appears normal. No free fluid. No solid or cystic mass.
[2021-07-14 19:04] LABS: Appearance,Urine Clear (Clear); Bilirubin,Urine Negative (Negative); Blood,Urine Negative (Negative); Color,Urine Yellow; Glucose,Urine (UA) Negative (Negative); Ketones,Urine Negative (Negative); Leukocyte Esterase,Urine Negative (Negative); Nitrite,Urine Negative (Negative); PH, Urine 6.5 (5.0-8.0); Protein,Urine Negative (Negative); Specific Gravity,Urine 1.023 (1.001-1.035)
== END 2021-07-14 20:19 | disposition home or self-care (01) ==
LOC: EC 15:59
DX: R10.31 Right lower quadrant pain (principal); F17.200 Nicotine dependence, unspecified, uncomplicated; Z88.7 Allergy status to serum and vaccine
CPT/HCPCS: 36415; 74018; 76705; 80053; 81003; 82150; 83690; 85025; 96360; 99284

== ENCOUNTER 2023-05-30 21:00 | Emergency (ER) | payer OTHER ==
[2023-05-30 21:15] VITALS: RESP 18; TEMP 98.2
[2023-05-30] MEDS ORDERED: CEPHALEXIN 500 MG CAP PO STA (23:22)
--- NOTE | 2023-05-31 00:09 | ED ---
General Adult HPI - General Chief complaint: Extremity Problem,Nontraumatic Stated complaint: L Foot Swelling Time Seen by Provider: 05/30/23 21:53 Source: patient, RN notes reviewed Mode of arrival: ambulatory Limitations: no limitations - History of Present Illness Initial comments: 42-year-old male presents to the emergency department chief complaint of left third toe redness and blistering 3 days. He states that he went to urgent care a couple days ago and was prescribed a steroid cream which she has been applying to his toes. He was told that it was athlete's foot. He states that he was prescribed Keflex as well but was unable to get the prescription as his pharmacy did not have it at the time. He states that the pharmacy told him that he would be back in stock on Tuesday. He states that it started as a small blister and progressed to a larger blister with redness. He denies fever, chills, nausea, vomiting. He is a nondiabetic. - Related Data Previous Rx's Medication Instructions Recorded Cephalexin [Keflex] 500 mg PO Q6HR #40 cap 05/31/23 Allergies Allergy/AdvReac Type Severity Reaction Status Date / Time Tetanus Vaccines and Toxoid Allergy Swelling Verified 05/30/23 21:15 Review of Systems ROS Statement: Those systems with pertinent positive or pertinent negative responses have been documented in the HPI. ROS Other: All systems not noted in ROS Statement are negative. Past Medical History Past Medical History: No Reported History Additional Past Medical History / Comment(s): diverticulitis History of Any Multi-Drug Resistant Organisms: None Reported Additional Past Surgical History / Comment(s): Urethra repair Past Psychological History: No Psychological Hx Reported Smoking Status: Current every day smoker Past Alcohol Use History: None Reported, Occasional Past Drug Use History: None Reported General Exam Limitations: no limitations General appearance: alert, in no apparent distress Head exam: Present: atraumatic, normocephalic, normal inspection Eye exam: Present: normal appearance ENT exam: Present: normal exam, mucous membranes moist Neck exam: Present: normal inspection. Absent: tenderness, meningismus, lymphadenopathy Respiratory exam: Present: wheezes Cardiovascular Exam: Present: regular rate, normal rhythm, normal heart sounds. Absent: systolic murmur, diastolic murmur, rubs, gallop, clicks Extremities exam: Present: full ROM, tenderness (Left third toe), normal capillary refill, other (Left third toe blister with yellow discharge, DP and PT pulses 2+). Absent: normal inspection, pedal edema, joint swelling, calf tenderness Back exam: Present: normal inspection Neurological exam: Present: alert, oriented X3 Psychiatric exam: Present: normal affect, normal mood Skin exam: Present: warm, dry, normal color, vesicles (Left third toe with yellow discharge) Course Vital Signs 05/30/23 21:09 Temperature 98.2 F Pulse Rate 70 Respiratory 18 Rate Blood Pressure 133/80 O2 Sat by Pulse 97 Oximetry Medical Decision Making - Medical Decision Making Was pt. sent in by a medical professional or institution (, PA, COMMUNICATION ASSISTANT, urgent care, hospital, or residential...) When possible be specific @ -No Did you speak to anyone other than the patient for history (EMS, parent, family, police, friend...)? What history was obtained from this source @ -No Did you review nursing and triage notes (agree or disagree)? Why? @ -I reviewed and agree with nursing and triage notes Were old charts reviewed (outside hosp., previous admission, EMS record, old EKG, old radiological studies, urgent care reports/EKG's, residential records)? Report findings @ -No old charts were reviewed Differential Diagnosis (chest pain, altered mental status, abdominal pain women, abdominal pain men, vaginal bleeding, weakness, fever, dyspnea, syncope, headache, dizziness, GI bleed, back pain, seizure, CVA, palpatations, mental health, musculoskeletal)? @ -nDifferential Musculoskeletal Muscular strain, contusion, ligament sprain, fracture, arthritis, septic arthritis, bursitis, cellulitis, muscle spasm, nerve compression, DVT, arterial occlusion, herpes zoster, electrolyte abnormality, tumor.... This is not meant to be in all inclusive list EKG interpreted by me (3pts min.). @ -None X-rays interpreted by me (1pt min.). @ -X-ray left toes showed no evidence for acute fracture or osteomyelitis CT interpreted by me (1pt min.). @ -None done U/S interpreted by me (1pt. min.). @ -None done What testing was considered but not performed or refused? (CT, X-rays, U/S, labs)? Why? @ -None What meds were considered but not given or refused? Why? @ -None Did you discuss the management of the patient with other professionals (professionals i.e. DrJodi, PA, COMMUNICATION ASSISTANT, lab, RT, psych nurse, psychologist social, floral design teacher, teacher, air intelligence officer, registered nurse hh case manager)? Give summary @ -No Was smoking cessation discussed for >3mins.? @ -No Was critical care preformed (if so, how long)? @ -No Were there social determinants of health that impacted care today? How? (Homelessness, low income, unemployed, alcoholism, drug addiction, transportation, low edu. Level, literacy, decrease access to med. care, prison, rehab)? @ -No Was there de-escalation of care discussed even if they declined (Discuss DNR or withdrawal of care, Hospice)? DNR status @ -No What co-morbidities impacted this encounter? (DM, HTN, Smoking, COPD, CAD, Cancer, CVA, ARF, Chemo, Hep., AIDS, mental health diagnosis, sleep apnea, morbid obesity)? @ -None Was patient admitted / discharged? Hospital course, mention meds given and route, prescriptions, significant lab abnormalities, going to OR and other pertinent info. @ -Discharge. Patient presented to emergency department chief complaint of left third toe redness, blistering. He has been putting steroid cream on the toe as prescribed by urgent care. He was prescribed antibiotics at that time but was unable to receive them has the pharmacy did not have evidence to or. Patient was given a dose of Keflex in the ED and prescription re-sent to his pharmacy. X-ray of the toes showed no evidence for acute fracture or osteomyelitis. Patient advised to stop applying the steroid cream to the toe. Wound culture was obtained and patient will be advised if change in antibiotic is necessary. Advised patient that he needs to take his antibiotic and take to completion. She is stable at discharge. Case discussed my attending, Dr. Lisa.. Undiagnosed new problem with uncertain prognosis? @ -No Drug Therapy requiring intensive monitoring for toxicity (Heparin, Nitro, Insulin, Cardizem)? @ -No Were any procedures done? @ -No Diagnosis/symptom? @ -Cellulitis Acute, or Chronic, or Acute on Chronic? @ -Acute Uncomplicated (without systemic symptoms) or Complicated (systemic symptoms)? @ -Uncomplicated Side effects of treatment? @ -No Exacerbation, Progression, or Severe Exacerbation? @ -No Poses a threat to life or bodily function? How? (Chest pain, [place], DC, pneumonia, PE, COPD, DKA, ARF, appy, cholecystitis, CVA, Diverticulitis, Homicidal, Suicidal, threat to staff... and all critical care pts) @ -No Disposition Clinical Impression: Cellulitis Disposition: HOME SELF-CARE Condition: Stable Instructions (If sedation given, give patient instructions): Cellulitis (ED) Additional Instructions: Please take your antibiotics as prescribed. Follow up with her primary care provider. Return to the emergency department for new or worsening symptoms. Prescriptions: Cephalexin [Keflex] 500 mg PO Q6HR #40 cap Is patient prescribed a controlled substance at d/c from ED?: No Referrals: None,Stated [Primary Care Provider] - 1-2 days Time of Disposition: 00:13
--- NOTE | 2023-05-31 00:13 | XR ---
EXAM: XR Left Toes, 2 or More Views CLINICAL HISTORY: ITS.REASON XR Reason: wound TECHNIQUE: Frontal, lateral and oblique views of the toes of the left foot. COMPARISON: No relevant prior studies available. FINDINGS: Bones/joints: Mild degenerative changes first metatarsal phalangeal joint. No acute fracture. No dislocation. Soft tissues: There is some soft tissue swelling of the third toe. No radiopaque foreign body. IMPRESSION: No acute osseous abnormality. No evidence for osteomyelitis.
[2023-05-31 00:35] VITALS: BP 137/77; PULSE 64
== END 2023-05-31 00:34 | disposition home or self-care (01) ==
LOC: EC 21:00
DX: L03.032 Cellulitis of left toe (principal); F17.200 Nicotine dependence, unspecified, uncomplicated; Z88.7 Allergy status to serum and vaccine
CPT/HCPCS: 87070; 87205; 99283